=== PATIENT | female | born 1955 | race Caucasian/White ===

== ENCOUNTER 2021-04-17 08:17 | Emergency (ER) | payer OTHER, SELFPAY ==
[2021-04-17 08:24] VITALS: BP 145/72; PULSE 89; RESP 20; TEMP 36.1; O2SAT 100
--- NOTE | 2021-04-17 08:27 | ED.URI ---
HPI - URI/Sore Throat General Chief Complaint: Upper Respiratory Infection Stated Complaint: upper respiratory Time Seen by Provider: 04/17/21 08:27 Source: patient and RN notes reviewed History of Present Illness HPI Narrative: Patient is a 65-year-old female who presents the urgent care with complaints of a harsh wet cough, intermittent wheezing, sinus drainage and congestion, and intermittent fevers. Patient denies of any chest pain, nausea, vomiting. Patient is currently denying of shortness of breath. Patient has been using her 2 nasal sprays including a daily Claritin and albuterol. Patient states that she has attempted to get a hold of her doctor the last couple days since her symptoms started and no one has called her back. No other acute complaints. Patient is vaccinated for Covid. No acute distress noted. Patient aware of the plan of care. Some parts of this dictation were generated by voice recognition software and may contain typographical and/or grammatical inaccuracies. Related Data Home Medications Medication Instructions Recorded Confirmed azelastine 2 spray INTRANASAL DAILY 04/17/21 04/17/21 levothyroxine [Synthroid] 100 mcg PO DAILY 04/17/21 04/17/21 montelukast 10 mg PO DAILY 04/17/21 04/17/21 omeprazole 20 mg PO BID 04/17/21 04/17/21 paroxetine HCl 40 mg PO DAILY 04/17/21 04/17/21 ropinirole 2 mg PO DAILY 04/17/21 04/17/21 Allergies Allergy/AdvReac Type Severity Reaction Status Date / Time Penicillins Allergy Intermediate Hives Verified 04/17/21 08:38 erythromycin base AdvReac Mild Nausea and Verified 04/17/21 08:38 Vomiting Review of Systems Review of Systems: Narrative: CONSTITUTIONAL: Reports of fevers EYES: Denies visual changes, redness, or discharge. ENT: Reports of sinus congestion and drainage CARDIOVASCULAR: Denies chest pain, palpitations, or edema. RESPIRATORY reports of harsh wet cough with intermittent wheezes GASTROINTESTINAL: Denies abdominal pain, nausea, vomiting, or diarrhea. GENITOURINARY: Denies dysuria or hematuria. SKIN: Denies rash or itching. MUSCULOSKELETAL: Denies back pain, joint pain, or myalgia. NEUROLOGIC: Denies headache, numbness, or weakness. All other systems reviewed are negative, except as documented in HPI. PMFSH Comments At the time of my signature, I reviewed and agree with the nursing past medical, surgical, social, and family history. There is no relevant family history pertinent to the patient complaint. Exam Narrative: Exam Narrative: GENERAL: This is a well-nourished, well-developed patient, in no apparent distress. HEAD: normocephalic, atraumatic. EYES: PERRL. Sclera clear/white. Vision is grossly intact. EARS: External ears normal, auditory canals clear and without drainage, TMs normal without perforation. Hearing grossly intact. NOSE: External nose normal with no obvious nasal discharge, nares without redness, clear rhinorrhea. THROAT: Mucous membranes moist, posterior pharynx clear. Moderate postnasal drainage NECK: Neck supple, non-tender without lymphadenopathy, masses or thyromegaly. CARDIOVASCULAR: Regular rate and rhythm without murmurs, gallops, or rubs. RESPIRATORY: Inspiratory and expiratory wheezes throughout. SKIN: warm, intact with no suspicious lesions or rash, good texture and turgor. NEURO: awake, alert, and oriented to person, place and time. There were no obvious focal neurologic abnormalities. EXTREMITIES: No clubbing, cyanosis, or edema. N Course Vital Signs Vital signs: Vital Signs Temperature 97.0 F L 04/17/21 08:24 Pulse Rate 89 04/17/21 08:24 Respiratory Rate 20 04/17/21 08:24 Blood Pressure 145/72 H 04/17/21 08:24 Pulse Oximetry 100 04/17/21 08:24 Temperature 97.0 F L 04/17/21 08:24 Pulse Rate 89 04/17/21 08:24 Respiratory Rate 20 04/17/21 08:24 Blood Pressure 145/72 H 04/17/21 08:24 Pulse Oximetry 100 04/17/21 08:24 Reviewed-patient is informed that they may have pre-hypertension o
== END 2021-04-17 09:00 | disposition home or self-care (01) ==
PROVIDERS: Emergency Provider Nurse Practitioner Family
DX: J40 Bronchitis, not specified as acute or chronic (principal); J32.9 Chronic sinusitis, unspecified; G25.81 Restless legs syndrome; K21.9 Gastro-esophageal reflux disease without esophagitis; E03.9 Hypothyroidism, unspecified; F32.9 Major depressive disorder, single episode, unspecified
CPT/HCPCS: 99213; G0463

== ENCOUNTER 2021-04-21 15:44 | Emergency (ER) | payer OTHER, SELFPAY ==
--- NOTE | ~2021-04-21 | XR_ITS ---
EXAMINATION: XR chest 2V DATE: 04/21/2021 16:08 INDICATION: Cough TECHNIQUE: PA and lateral views of the chest are obtained. COMPARISON: None available FINDINGS: The lungs are free of acute opacities. There is no pleural effusion or pneumothorax. The ca rdiomediastinal silhouette is normal. There is moderate thoracic spondylosis. IMPRESSION: 1. No acute cardiopulmonary abnormality. Reviewed, dictated and finalized at location A.
[2021-04-21 15:50] VITALS: BP 159/86; PULSE 87; RESP 22; TEMP 37; O2SAT 99
--- NOTE | 2021-04-21 15:52 | ED.URI ---
HPI - URI/Sore Throat General Chief Complaint: Upper Respiratory Infection Stated Complaint: upper respiratory Time Seen by Provider: 04/21/21 15:52 Source: patient and RN notes reviewed Mode of arrival: ambulatory Limitations: no limitations History of Present Illness HPI Narrative: 65-year-old female presents to the [facility] with continued cough after being evaluated on the , 3 days ago. States that she is still wheezing. Has tried to call her primary care provider and left multiple messages starting approximately 1 week ago. Has been started on an antibiotic and a Medrol Dosepak. Has been using her inhaler with minimal relief. Denies chest pain or abdominal pain. Denies fevers. Reports that since the cough that is keeping her awake. 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 Related Data Home Medications Medication Instructions Recorded Confirmed albuterol sulfate [ProAir HFA] 2 puff INHALATION Q4-6H 04/17/21 04/21/21 azelastine 2 spray INTRANASAL DAILY 04/17/21 04/21/21 levothyroxine [Synthroid] 100 mcg PO DAILY 04/17/21 04/21/21 montelukast 10 mg PO DAILY 04/17/21 04/21/21 omeprazole 20 mg PO BID 04/17/21 04/21/21 paroxetine HCl 40 mg PO DAILY 04/17/21 04/21/21 ropinirole 2 mg PO DAILY 04/17/21 04/21/21 Allergies Allergy/AdvReac Type Severity Reaction Status Date / Time Penicillins Allergy Intermediate Hives Verified 04/21/21 15:59 codeine AdvReac Mild Nausea and Verified 04/21/21 15:59 Vomiting erythromycin base AdvReac Mild Nausea and Verified 04/21/21 15:59 Vomiting Review of Systems Review of Systems: All systems reviewed & are unremarkable except as noted in HPI and below Constitutional: Constitutional: Reports no additional constitutional complaints, Denies chills and Denies fever(s) Eyes: Eyes: Reports no additional eye complaints ENT: Reports system reviewed and no additional complaints, except as documented and Denies sore throat Cardiovascular: Cardiovascular: Reports no additional cardiovascular complaints and Denies chest pain Respiratory: Respiratory: Reports as per HPI, Reports cough, Reports dyspnea and Reports wheezing Gastrointestinal: Gastrointestinal: Reports no additional gastrointestinal complaints, Denies abdominal pain, Denies nausea and Denies vomiting Musculoskeletal: Musculoskeletal: Reports no additional musculoskeletal complaints, Denies back pain and Denies muscle cramps Integumentary/Breasts: Skin/Breast: Reports system reviewed and no additional complaints, except as docu, Denies pruritus, Denies erythema and Denies rash Neurologic: Reports system reviewed and no additional complaints, except as documented Psychiatric: Psychiatric: Reports no additional psychiatric complaints PMFSH Comments At the time of my signature, I reviewed and agree with the nursing past medical, surgical, social, and family history. There is no relevant family history pertinent to the patient complaint. Exam Const: General: alert and ill appearing acutely Nutritional Appearance: well nourished and obese Orientation/consciousness: patient oriented x3 HENMT: Head: normal to inspection Eyes: Pupils: Equal, round and reactive pupils present Neck: Neck: normal visual inspection and no lymphadenopathy Chest: Chest palpation & inspection: normal inspection of the chest Resp: Effort & Inspection: normal respiratory effort, labored and no use of accessory muscles Auscultation: crackles, no rales, rhonchi and wheezes Cardio: Rate: regular rate Rhythm: regular rhythm GI: GI Palp: Yes Soft to palpation and No Tenderness to palpation present (GI) : General: Yes no CVA tenderness Back/Spine/Pelvis: Back: no CVA tenderness Skin: General skin exam: normal color Rashes: no rashes Course Course Emergency Course: Posttreatment mild wheezing noted. Coarseness and rhonchi have gone. Patient states that she does feel better.
[2021-04-21] MEDS: IPRATROPIUM BR 0.02% INH SOLN 0.5 MG/2.5 ML VIAL INHALATION (16:13)
[2021-04-21] MEDS: ALBUTEROL SULFATE NEB 2.5 MG/3 ML INH INHALATION (16:13)
== END 2021-04-21 17:14 | disposition home or self-care (01) ==
PROVIDERS: Emergency Provider Nurse Practitioner; PCP Family Medicine
DX: J40 Bronchitis, not specified as acute or chronic (principal); G25.81 Restless legs syndrome; K21.9 Gastro-esophageal reflux disease without esophagitis; E03.9 Hypothyroidism, unspecified; F32.9 Major depressive disorder, single episode, unspecified
CPT/HCPCS: 71046; 94640; 99213; G0463

== ENCOUNTER 2021-08-18 12:13 | Emergency (ER) | payer OTHER, SELFPAY ==
[2021-08-18 12:22] VITALS: BP 135/75; PULSE 82; RESP 18; TEMP 36.1; O2SAT 100
--- NOTE | 2021-08-18 12:26 | ED.GENADULT ---
HPI - General Adult General Chief complaint: Upper Respiratory Infection Stated complaint: cough,chest tightness Time Seen by Provider: 08/18/21 12:26 Source: patient Mode of arrival: ambulatory Limitations: no limitations History of Present Illness HPI narrative: 65-year-old female patient presents to the [facility] with complaints of cold symptoms that started with a scratchy throat 4 days ago and developed into a cough 2 days ago. Patient states she is fully vaccinated and received her second vaccine in March of this year. Patient states she has had runny nose, congestion, scratchy throat and a cough and at times does cough up some yellow sputum. Denies any chest pain or shortness of breath. Patient states that she has been taking Zyrtec daily as well as her inhaler 3 or 4 times a day. 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 Related Data Home Medications Medication Instructions Recorded Confirmed azelastine 2 spray INTRANASAL DAILY 04/17/21 08/18/21 levothyroxine [Synthroid] 100 mcg PO DAILY 04/17/21 08/18/21 montelukast 10 mg PO DAILY 04/17/21 08/18/21 omeprazole 20 mg PO BID 04/17/21 08/18/21 paroxetine HCl 40 mg PO DAILY 04/17/21 08/18/21 ropinirole 2 mg PO DAILY 04/17/21 08/18/21 acetaminophen [Tylenol Extra PO 07/09/21 Strength] aspirin 81 mg tablet,delayed 81 mg PO DAILY 07/09/21 08/18/21 release black cohosh 540 mg capsule 20 mg PO TID cap 07/09/21 08/18/21 cetirizine 10 mg disintegrating 10 mg PO DAILY 07/09/21 08/18/21 tablet fluticasone propionate 50 2 spray INTRANASAL DAILY 07/09/21 08/18/21 mcg/actuation nasal spray,suspension ibuprofen PO 07/09/21 multivitamin 1 tablet PO DAILY 07/09/21 08/18/21 omega-3 fatty acids [Fish Oil PO 07/09/21 Concentrate] Allergies Allergy/AdvReac Type Severity Reaction Status Date / Time Penicillins Allergy Intermediate Hives Verified 08/17/21 12:53 codeine AdvReac Mild Nausea and Verified 08/17/21 12:53 Vomiting erythromycin base AdvReac Mild Nausea and Verified 08/17/21 12:53 Vomiting Review of Systems Review of Systems: CONSTITUTIONAL: Denies fever, chills, or sweats. EYES: Denies visual changes, redness, or discharge. ENT: Positive rhinorrhea, congestion, sore throat, denies otalgia. CARDIOVASCULAR: Denies chest pain, palpitations, or edema. RESPIRATORY: Positive productive cough, denies dyspnea. GASTROINTESTINAL: Denies abdominal pain, nausea, vomiting, or diarrhea. GENITOURINARY: Denies dysuria or hematuria. SKIN: Denies rash or itching. MUSCULOSKELETAL: Denies back pain, joint pain, or myalgia. NEUROLOGIC: Denies headache, numbness, or weakness. PSYCHIATRIC: Denies anxiety or depression. [facility] Past Medical History Medical History Allergies ELAINA positive (~2019) Anxiety GERD (gastroesophageal reflux disease) Inflammatory arthritis Myalgia Thyroid disorder Family History Family History Father Alcohol abuse Mother Skin cancer Grandparent Heart disease Social History Social History Smoking status: Never smoker Alcohol intake: current Alcohol use details: wine/beer Substance use: never Substance use type: does not use Comments At the time of my signature I agree with nursing past medical history, surgical, social, and family history. There is no relevant family history pertinent to the presenting complaint. Exam Narrative: GENERAL: Well-appearing, well-nourished, and in no acute distress. HEAD: Normocephalic, atraumatic. EYES: PERRLA and EOMI. ENT: Nares with erythema and edema noted bilaterally, no rhinorrhea or epistaxis. Mucous membranes moist. Posterior pharynx no erythema, tonsillectomy, exudates or lesions present. Bilateral TMs are clear no erythema or foreign bodies to the canal. NECK: Supple. No lymphadenop
[2021-08-20 19:01] LABS: SARS-CoV-2 RNA PCR Negative
== END 2021-08-18 13:28 | disposition home or self-care (01) ==
PROVIDERS: Emergency Provider Nurse Practitioner Family; PCP Family Medicine
DX: J06.9 Acute upper respiratory infection, unspecified (principal); Z79.82 Long term (current) use of aspirin; Z79.1 Long term (current) use of non-steroidal anti-inflammatories (NSAID); Z20.822 Contact with and (suspected) exposure to COVID-19
CPT/HCPCS: 87426; 99213; C9803; G0463; U0003; U0005

== ENCOUNTER 2021-08-22 13:48 | Emergency (ER) | payer OTHER, SELFPAY ==
--- NOTE | ~2021-08-22 | XR_ITS ---
EXAMINATION: XR chest 2V EXAM DATE: 08/22/2021 14:40 INDICATION: Cough. TECHNIQUE: Frontal and lateral projections of the chest obtained and reviewed. Comparison is made to prior examination from 04/21/2021. FINDINGS: The lungs are clear. There are no pleural effusions. The cardiomediastinal silhouette is within normal limits. There is no pneumothorax suspected. The bones and soft tissues are unremarkab le. IMPRESSION: No acute cardiopulmonary findings. Reviewed, dictated and finalized at location B.
[2021-08-22 13:52] VITALS: BP 132/71; PULSE 84; RESP 16; TEMP 36.4; O2SAT 99
--- NOTE | 2021-08-22 13:57 | ED.URI ---
HPI - URI/Sore Throat General Chief Complaint: Upper Respiratory Infection Stated Complaint: sinus pain nausea Time Seen by Provider: 08/22/21 13:57 Source: patient and RN notes reviewed History of Present Illness HPI Narrative: Patient is a 65-year-old female who presents the urgent care with complaints of intermittent shortness of breath with a barking cough. Patient states that she was seen here a few days ago and was given a 5-day 40 mg dose of prednisone. Patient denies of any new symptoms since her last visit. States that she did complete the steroid regimen. Patient was negative for Covid both on a rapid and PCR test. Denies of any recent fevers. No other acute complaints. No acute distress noted. Patient aware of the plan of care. Some parts of this dictation were generated by voice recognition software and may contain typographical and/or grammatical inaccuracies. Related Data Home Medications Medication Instructions Recorded Confirmed azelastine 2 spray INTRANASAL DAILY 04/17/21 08/22/21 levothyroxine [Synthroid] 100 mcg PO DAILY 04/17/21 08/22/21 montelukast 10 mg PO DAILY 04/17/21 08/22/21 omeprazole 20 mg PO BID 04/17/21 08/22/21 paroxetine HCl 40 mg PO DAILY 04/17/21 08/22/21 ropinirole 2 mg PO DAILY 04/17/21 08/22/21 aspirin 81 mg tablet,delayed 81 mg PO DAILY 07/09/21 08/22/21 release black cohosh 540 mg capsule 20 mg PO TID cap 07/09/21 08/22/21 cetirizine 10 mg disintegrating 10 mg PO DAILY 07/09/21 08/22/21 tablet fluticasone propionate 50 2 spray INTRANASAL DAILY 07/09/21 08/22/21 mcg/actuation nasal spray,suspension multivitamin 1 tablet PO DAILY 07/09/21 08/22/21 Allergies Allergy/AdvReac Type Severity Reaction Status Date / Time Penicillins Allergy Intermediate Hives Verified 08/22/21 14:09 codeine AdvReac Mild Nausea and Verified 08/22/21 14:09 Vomiting erythromycin base AdvReac Mild Nausea and Verified 08/22/21 14:09 Vomiting Review of Systems Review of Systems: CONSTITUTIONAL: Denies fever, chills, or sweats. EYES: Denies visual changes, redness, or discharge. ENT: Denies rhinorrhea, congestion, sore throat, or otalgia. CARDIOVASCULAR: Denies chest pain, palpitations, or edema. RESPIRATORY: Reports of harsh cough with intermittent dyspnea GASTROINTESTINAL: Denies abdominal pain, nausea, vomiting, or diarrhea. GENITOURINARY: Denies dysuria or hematuria. SKIN: Denies rash or itching. MUSCULOSKELETAL: Denies back pain, joint pain, or myalgia. NEUROLOGIC: Denies headache, numbness, or weakness. All other systems reviewed are negative, except as documented in HPI. [facility] Past Medical History Medical History Allergies ELAINA positive (~2019) Anxiety GERD (gastroesophageal reflux disease) Inflammatory arthritis Myalgia Thyroid disorder Family History Family History Father Alcohol abuse Mother Skin cancer Grandparent Heart disease Social History Social History Smoking status: Never smoker Alcohol intake: current Alcohol use details: wine/beer Substance use: never Substance use type: does not use Comments At the time of my signature, I reviewed and agree with the nursing past medical, surgical, social, and family history. There is no relevant family history pertinent to the patient complaint. Exam Narrative: GENERAL: This is a well-nourished, well-developed patient, in no apparent distress. HEAD: normocephalic, atraumatic. EYES: PERRL. Sclera clear/white. Vision is grossly intact. EARS: External ears normal, auditory canals clear and without drainage, TMs normal without perforation. Hearing grossly intact. NOSE: External nose normal with no obvious nasal discharge, nares without redness, no rhinorrhea. THROAT: Mucous membranes moist, posterior pharynx clear. NECK: Neck supple, non-ten
== END 2021-08-22 15:05 | disposition home or self-care (01) ==
PROVIDERS: Emergency Provider Nurse Practitioner Family; PCP Family Medicine
DX: J40 Bronchitis, not specified as acute or chronic (principal); J32.9 Chronic sinusitis, unspecified; K21.9 Gastro-esophageal reflux disease without esophagitis; M06.9 Rheumatoid arthritis, unspecified; F41.9 Anxiety disorder, unspecified; E07.9 Disorder of thyroid, unspecified
CPT/HCPCS: 71046; 99213; G0463